=== PATIENT | female | born 1935 | race Hispanic/Latino ===

== ENCOUNTER 2017-07-06 12:14 | Emergency (ER) | payer OTHER, MEDICARE ==
[~2017-07-06 12:14] MED LIST: ACET-2893 PO; ACYC800T PO; ADV250 IH; ALBU2.5V2 IH; ASPI-1181 PO; ATOR20TA65 PO; BIOT25008 PO; CALC-1116 PO; CHOL200012 PO; CYAN250014 PO; DICL2100G TP; EZET10 PO; FISH OIL ORAL PO; FOLI1TAB15 PO; GABA-531 PO; GUAI-1235 PO; IRON18TA PO; LISI10TA7 PO; LISI2.5T2 PO; LORA10TA7 PO; MELA10CA2 PO; MULT1TAB82 PO; NAPR220C16 PO; NAPR250T4 PO; NITR0.4T SL; SIME125C91 PO; SUCR1TAB2 PO; TERB250T51 PO
[2017-07-06 13:31] LABS: BASOPHILS % (AUTO) 0.4 % (0.0-5.0); EOSINOPHILS % (AUTO) 0.6 % (0.0-8.0); HEMATOCRIT 41.5 % (36-48); LYMPHOCYTES % (AUTO) 13.3 % (21.0-51.0); MEAN CORPUSCULAR HEMOGLOBIN 29.4 pg (27.0-33.0); MEAN CORPUSCULAR HGB CONC 33.2 g/dL (32.0-36.0); MEAN CORPUSCULAR VOLUME 88.6 fL (79-99); MONOCYTES % (AUTO) 5.3 % (3.0-13.0); NEUTROPHILS % (AUTO) 80.4 % (40.0-77.0); PLATELET COUNT (AUTO) 412 K/uL (130-400); RED BLOOD CELL COUNT(AUTO) 4.68 MIL/uL (4.00-5.50); RED CELL DISTRIBUTION WIDTH 15.7 % (11.0-15.5); WHITE BLOOD COUNT (AUTO) 13.7 K/uL (4.8-10.8)
[2017-07-06 13:33] LABS: APPEARANCE,URINE Clear (CLEAR); BILIRUBIN,URINE Negative (NEGATIVE); COLOR,URINE Yellow (YELLOW); GLUCOSE, URINE (UA) Negative (NEGATIVE); KETONES,URINE Negative (NEGATIVE); LEUKOCYTE ESTERASE ,URINE Trace (NEGATIVE); NITRATE,URINE Negative (NEGATIVE); OCCULT BLOOD,URINE Trace (NEGATIVE); PROTEIN,URINE Negative (NEGATIVE); UROBILINOGEN,URINE 0.2 mg/dL (0.2-1.0)
[2017-07-06 13:40] LABS: CREATININE 0.8 mg/dL (0.5-1.5); POTASSIUM 3.7 mmol/L (3.5-5.1)
[2017-07-06 13:45] LABS: ALBUMIN 3.4 g/dL (3.5-5.0); BILIRUBIN,TOTAL 0.6 mg/dL (0.2-1.0); TOTAL PROTEIN, SERUM 7.9 g/dL (6.0-8.3)
[2017-07-06 13:46] LABS: BACTERIA,URINE Few /HPF (None Seen); RBC,URINE 0-1 /HPF (0-1); SQUAMOUS EPITHELIAL CELL,UR 0-2 /LPF (0-2); WBC,URINE 0-1 /HPF (0-1)
[2017-07-06] MEDS ORDERED: GLYCERIN ADULT SUPP.RECT RC ONE (13:58)
[2017-07-06 14:11] LABS: CREATINE KINASE MB 1.6 ng/mL (0.5-3.6)
[2017-07-06 14:32] LABS: INR 0.97 (0.85-1.15); PARTIAL THROMBOPLASTIN TIME 29.6 SEC (26.3-35.5); PROTHROMBIN TIME 10.2 SEC (9.6-11.6)
[2017-10-17] MEDS ORDERED: IRON PO (10:56)
[2017-10-17] MEDS ORDERED: GLUC-145 PO (10:59)
[2017-10-17] MEDS ORDERED: GARL1000 PO (10:59)
[2017-10-17] MEDS ORDERED: MAGN250T2 PO (10:59)
[2017-10-17] MEDS ORDERED: TOPI50TA24 PO (10:59)
[2017-10-17] MEDS ORDERED: DIPH25TA51 PO (11:02)
[2017-10-17] MEDS ORDERED: ESCI10TA54 PO (11:02)
[2017-10-17] MEDS ORDERED: PANT40TA25 PO (11:02)
[2017-11-13] MEDS ORDERED: IPRA3AMP4 IH (14:59)
== END 2017-07-06 16:50 | disposition home or self-care (01) ==
LOC: EDH 12:14
DX: K56.41 Fecal impaction (principal); K64.8 Other hemorrhoids; E11.9 Type 2 diabetes mellitus without complications; E78.5 Hyperlipidemia, unspecified; Z88.0 Allergy status to penicillin
CPT/HCPCS: 36415; 71045; 74176; 80053; 81001; 82150; 82270; 82550; 82553; 83690; 85025; 85610; 85730; 93005

== ENCOUNTER → 2017-09-20 | Outpatient (CLI) | payer OTHER, MEDICARE ==
[~2017-09-20] MED LIST changes: +AZIT500T PO; +DIPH25TA51 PO; +ESCI10TA54 PO; +GARL1000 PO; +GLUC-145 PO; +IPRA3AMP24 IH; +IRON PO; +MAGN250T2 PO; +METO25 PO; +PANT40TA25 PO; +PRED20TA3 PO; +TOPI50TA24 PO
== END | disposition home or self-care (01) ==
LOC: SHCH 08:44
PROVIDERS: ATTEND Internal Medicine Cardiovascular Disease
DX: I35.0 Nonrheumatic aortic (valve) stenosis (principal); I10 Essential (primary) hypertension
CPT/HCPCS: 93306

== ENCOUNTER → 2017-09-26 | Outpatient (CLI) | payer OTHER, MEDICARE | END | disposition home or self-care (01) | LOC: SHCH 09:47 | PROVIDERS: ATTEND Internal Medicine Cardiovascular Disease | DX: I65.23 Occlusion and stenosis of bilateral carotid arteries (principal); R09.89 Other specified symptoms and signs involving the circulatory and respiratory systems | CPT/HCPCS: 93880 ==

== ENCOUNTER → 2017-10-17 | Outpatient (CLI) | payer OTHER, MEDICARE ==
[~2017-10-17] VITALS: Ht 152.4 cm; Wt 73.3 kg
[~2017-10-17] MED LIST changes: +SODIUM CHLORIDE 0.9% 500ML 500 ML IV SCH
[2017-10-17 10:03] VITALS: BP 138/73
[2017-10-17 10:04] LABS: BASOPHILS % (AUTO) 0.6 % (0.0-5.0); EOSINOPHILS % (AUTO) 0.6 % (0.0-8.0); HEMATOCRIT 39.9 % (36-48); LYMPHOCYTES % (AUTO) 16.3 % (21.0-51.0); MEAN CORPUSCULAR HEMOGLOBIN 32.2 pg (27.0-33.0); MEAN CORPUSCULAR HGB CONC 34.9 g/dL (32.0-36.0); MEAN CORPUSCULAR VOLUME 92.3 fL (79-99); MONOCYTES % (AUTO) 9.1 % (3.0-13.0); NEUTROPHILS % (AUTO) 73.4 % (40.0-77.0); PLATELET COUNT (AUTO) 284 K/uL (130-400); RED BLOOD CELL COUNT(AUTO) 4.32 MIL/uL (4.00-5.50); RED CELL DISTRIBUTION WIDTH 13.5 % (11.0-15.5); WHITE BLOOD COUNT (AUTO) 8.7 K/uL (4.8-10.8)
[2017-10-17 10:05] LABS: APPEARANCE,URINE Cloudy (CLEAR); BILIRUBIN,URINE Negative (NEGATIVE); COLOR,URINE Yellow (YELLOW); GLUCOSE, URINE (UA) Negative (NEGATIVE); KETONES,URINE Negative (NEGATIVE); LEUKOCYTE ESTERASE ,URINE Negative (NEGATIVE); NITRATE,URINE Negative (NEGATIVE); OCCULT BLOOD,URINE Negative (NEGATIVE); PH,URINE 6.5 (5.0-8.0); PROTEIN,URINE Negative (NEGATIVE); UROBILINOGEN,URINE 0.2 mg/dL (0.2-1.0)
[2017-10-17 10:17] LABS: INR 0.99 (0.85-1.15); PARTIAL THROMBOPLASTIN TIME 29.4 SEC (26.3-35.5); PROTHROMBIN TIME 10.4 SEC (9.6-11.6)
[2017-10-17 10:18] LABS: CREATININE 0.6 mg/dL (0.5-1.5)
[2017-10-17 10:29] LABS: BACTERIA,URINE Rare /HPF (None Seen); RBC,URINE 0-1 /HPF (0-1); SQUAMOUS EPITHELIAL CELL,UR Few /HPF (0-2); WBC,URINE 0-1 /HPF (0-1)
== END | disposition home or self-care (01) ==
LOC: EDSTATUS 09:00 → DAH 10:00
PROVIDERS: ATTEND Internal Medicine Cardiovascular Disease
DX: Z01.818 Encounter for other preprocedural examination (principal); I25.10 Atherosclerotic heart disease of native coronary artery without angina pectoris; R79.1 Abnormal coagulation profile
CPT/HCPCS: 36415; 71045; 80048; 81001; 85025; 85610; 85730; 93005

== ENCOUNTER 2017-11-11 14:00 | Inpatient (IN) | payer OTHER, MEDICARE ==
[~2017-11-11] VITALS: Ht 152.4 cm; Wt 76.0 kg
[~2017-11-11 14:00] MED LIST changes: -ACYC800T PO; -ALBU2.5V2 IH; -ATOR20TA65 PO; -AZIT500T PO; -BIOT25008 PO; -GUAI-1235 PO; -IPRA3AMP24 IH; -IRON18TA PO; -LISI2.5T2 PO; -LORA10TA7 PO; -MELA10CA2 PO; -METO25 PO; -MULT1TAB82 PO; -PRED20TA3 PO; -SIME125C91 PO; -SODIUM CHLORIDE 0.9% 500ML 500 ML IV SCH; -TERB250T51 PO
[2017-11-11 14:46] LABS: BASOPHILS % (AUTO) 1.1 % (0.0-5.0); EOSINOPHILS % (AUTO) 0.6 % (0.0-8.0); HEMATOCRIT 37.9 % (36-48); LYMPHOCYTES % (AUTO) 40.5 % (21.0-51.0); MEAN CORPUSCULAR HEMOGLOBIN 30.7 pg (27.0-33.0); MEAN CORPUSCULAR HGB CONC 34.3 g/dL (32.0-36.0); MEAN CORPUSCULAR VOLUME 89.6 fL (79-99); MONOCYTES % (AUTO) 8.7 % (3.0-13.0); NEUTROPHILS % (AUTO) 49.1 % (40.0-77.0); PLATELET COUNT (AUTO) 293 K/uL (130-400); RED BLOOD CELL COUNT(AUTO) 4.23 MIL/uL (4.00-5.50); RED CELL DISTRIBUTION WIDTH 13.5 % (11.0-15.5); WHITE BLOOD COUNT (AUTO) 7.1 K/uL (4.8-10.8)
[2017-11-11] MEDS ORDERED: IPRATROPIUM/ALBUTEROL SULFATE 3 ML SOLUTION IH ONE ×2 (14:57→16:08)
[2017-11-11 14:59] LABS: CREATININE 0.5 mg/dL (0.5-1.5); POTASSIUM 3.7 mmol/L (3.5-5.1)
[2017-11-11 15:04] LABS: ALBUMIN 3.5 g/dL (3.5-5.0); BILIRUBIN,TOTAL 0.2 mg/dL (0.2-1.0); TOTAL PROTEIN, SERUM 7.8 g/dL (6.0-8.3)
[2017-11-11 15:32] LABS: B-TYPE NATRIURETIC PEPTIDE 39 pg/mL (0-100)
[2017-11-11] MEDS ORDERED: METHYLPREDNISOLONE SOD SUCC 40MG/ML 1ML ONE (16:25)
[2017-11-11 16:27] LABS: APPEARANCE,URINE Clear (CLEAR); BILIRUBIN,URINE Negative (NEGATIVE); COLOR,URINE Yellow (YELLOW); GLUCOSE, URINE (UA) Negative (NEGATIVE); KETONES,URINE Negative (NEGATIVE); LEUKOCYTE ESTERASE ,URINE Moderate (NEGATIVE); NITRATE,URINE Negative (NEGATIVE); OCCULT BLOOD,URINE Large (NEGATIVE); PROTEIN,URINE Negative (NEGATIVE); UROBILINOGEN,URINE 0.2 mg/dL (0.2-1.0)
[2017-11-11 16:52] LABS: BACTERIA,URINE Few /HPF (None Seen); SQUAMOUS EPITHELIAL CELL,UR 0-2 /HPF (0-2)
[2017-11-11] MEDS ORDERED: SODIUM CHLORIDE 0.9% 1000ML 1,000 ML IV ONE (17:23)
[2017-11-11] MEDS ORDERED: IOPAMIDOL-370 75 ML VIAL IV ONE (17:26)
[2017-11-11] MEDS: AZITHROMYCIN 500MG+NS 250ML 250 ML IV SCH (20:45)
[2017-11-11] MEDS ORDERED: AZITHROMYCIN 500MG+NS 250ML 250 ML IV ONE (21:50)
[2017-11-11 22:50] VITALS: BP 156/90
[2017-11-11] MEDS ORDERED: GLUCAGON 1MG KIT 1 MG ML IM PRN (23:15)
[2017-11-11] MEDS ORDERED: DEXTROSE 50%-WATER 50 ML DISP.SYRIN IV PRN (23:15)
[2017-11-11] MEDS ORDERED: HYDRALAZINE HCL 20 MG/ML VIAL IV PRN (23:15)
[2017-11-11] MEDS ORDERED: LORAZEPAM 2 MG/ML 1 ML VIAL IVP PRN (23:15)
[2017-11-11] MEDS ORDERED: ACETAMINOPHEN 325 MG TAB PO PRN (23:15)
[2017-11-11] MEDS ORDERED: ONDANSETRON HCL MDV 20ML 2 MG/ML VIAL IVP PRN (23:15)
[2017-11-11] MEDS ORDERED: ACETAMINOPHEN 325 MG TAB ONE (23:26)
[2017-11-11] MEDS ORDERED: HYDRALAZINE HCL 20 MG/ML VIAL ONE (23:26)
[2017-11-11] MEDS ORDERED: METHYLPREDNISOLONE SOD SUCC 40MG/ML 1ML IVP SCH (23:45)
[2017-11-12] MEDS ORDERED: IPRATROPIUM/ALBUTEROL SULFATE 3 ML SOLUTION IH SCH
[2017-11-12] MEDS ORDERED: FAMOTIDINE/PF 20 MG/2 ML VIAL IV ONE (00:23)
[2017-11-12] MEDS ORDERED: IPRATROPIUM 0.5 MG/2.5 ML INH IH ONE (00:54)
[2017-11-12 03:51] VITALS: BP 144/75
[2017-11-12] MEDS: INSULIN HUMULIN R 100 UNIT/ML 3ML SQ SCH ×4 (05:23→20:40)
[2017-11-12 05:25] LABS: MEAN CORPUSCULAR HEMOGLOBIN 30.8 pg (27.0-33.0); MEAN CORPUSCULAR HGB CONC 34.6 g/dL (32.0-36.0); MEAN CORPUSCULAR VOLUME 89.1 fL (79-99); PLATELET COUNT (AUTO) 308 K/uL (130-400); RED BLOOD CELL COUNT(AUTO) 4.38 MIL/uL (4.00-5.50); RED CELL DISTRIBUTION WIDTH 13.2 % (11.0-15.5); WHITE BLOOD COUNT (AUTO) 5.9 K/uL (4.8-10.8)
[2017-11-12 05:43] LABS: CREATININE 0.6 mg/dL (0.5-1.5); POTASSIUM 3.8 mmol/L (3.5-5.1)
[2017-11-12] MEDS: IPRATROPIUM 0.5 MG/2.5 ML INH IH SCH ×2 (06:30)
[2017-11-12 07:51] VITALS: BP 159/88
[2017-11-12] MEDS ORDERED: CEFTRIAXONE 1GM/D5W 50ML 50 ML IV SCH (09:00)
[2017-11-12] MEDS: FAMOTIDINE 20MG TAB 20 MG TAB PO SCH ×2 (10:18→20:39)
[2017-11-12] MEDS: METOPROLOL TARTRATE 25 MG TAB PO SCH ×2 (10:18→20:39)
[2017-11-12] MEDS: ENOXAPARIN SODIUM 40 MG/0.4 ML SYRINGE SQ SCH (10:19)
[2017-11-12] MEDS: SODIUM CHLORIDE 0.9% 1000ML 1,000 ML IV SCH ×3 (10:20→22:53)
[2017-11-12] MEDS: IPRATROPIUM/ALBUTEROL SULFATE 3 ML SOLUTION IH SCH ×4 (10:46→22:32)
[2017-11-12 11:35] VITALS: BP 167/77
[2017-11-12 16:39] VITALS: BP 155/66
[2017-11-12] MEDS: METHYLPREDNISOLONE SOD SUCC 40MG/ML 1ML IVP SCH ×2 (16:54→22:53)
[2017-11-12 19:25] VITALS: BP 128/59
[2017-11-12] MEDS: AZITHROMYCIN 500MG+NS 250ML 250 ML IV SCH (20:39)
[2017-11-12 23:22] VITALS: BP 148/68
[2017-11-13] MEDS: IPRATROPIUM/ALBUTEROL SULFATE 3 ML SOLUTION IH SCH ×4 (01:51→13:19)
[2017-11-13 03:29] VITALS: BP 144/66
[2017-11-13 04:16] LABS: ABG HCO3 23.9 mmol/L (21.0-28.0); ABG OXYGEN SATURATION 98.2 % (95.0-99.0); ABG PCO2 33 mmHg (32-45)
[2017-11-13 05:37] LABS: HEMATOCRIT 36.3 % (36-48); LYMPHOCYTES % (AUTO) 5.5 % (21.0-51.0); MEAN CORPUSCULAR HEMOGLOBIN 30.3 pg (27.0-33.0); MEAN CORPUSCULAR HGB CONC 33.7 g/dL (32.0-36.0); NEUTROPHILS % (AUTO) 92.5 % (40.0-77.0); PLATELET COUNT (AUTO) 264 K/uL (130-400); RED BLOOD CELL COUNT(AUTO) 4.03 MIL/uL (4.00-5.50); WHITE BLOOD COUNT (AUTO) 5.5 K/uL (4.8-10.8)
[2017-11-13 05:53] LABS: CREATININE 0.7 mg/dL (0.5-1.5); POTASSIUM 3.9 mmol/L (3.5-5.1)
[2017-11-13 07:40] VITALS: BP 142/64
[2017-11-13] MEDS: METHYLPREDNISOLONE SOD SUCC 40MG/ML 1ML IVP SCH ×2 (07:48→15:45)
[2017-11-13] MEDS: INSULIN HUMULIN R 100 UNIT/ML 3ML SQ SCH ×2 (08:07→11:30)
[2017-11-13] MEDS: FAMOTIDINE 20MG TAB 20 MG TAB PO SCH (08:10)
[2017-11-13] MEDS: METOPROLOL TARTRATE 25 MG TAB PO SCH (08:10)
[2017-11-13] MEDS: ENOXAPARIN SODIUM 40 MG/0.4 ML SYRINGE SQ SCH (08:15)
[2017-11-13 11:32] VITALS: BP 151/67
[2017-11-13] MEDS: SODIUM CHLORIDE 0.9% 1000ML 1,000 ML IV SCH (13:17)
[2017-11-13] MEDS ORDERED: PRED20TA3 PO (14:59)
[2017-11-13] MEDS ORDERED: AZIT500T PO (14:59)
[2017-11-13] MEDS ORDERED: IPRA3AMP24 IH (14:59)
[2017-11-13] MEDS ORDERED: METO25 PO (14:59)
== END 2017-11-13 16:40 | disposition home or self-care (01) | DRG 202 ==
LOC: EDH 14:00 → EDHIP 20:29 → 3CH 21:16
PROVIDERS: ADMIT Internal Medicine Nephrology; ATTEND Internal Medicine Nephrology
DX: J45.902 Unspecified asthma with status asthmaticus (principal); E87.1 Hypo-osmolality and hyponatremia; R06.03 Acute respiratory distress; E11.9 Type 2 diabetes mellitus without complications; E66.9 Obesity, unspecified; Z68.32 Body mass index [BMI] 32.0-32.9, adult; E78.5 Hyperlipidemia, unspecified; F10.10 Alcohol abuse, uncomplicated; F32.9 Major depressive disorder, single episode, unspecified; I10 Essential (primary) hypertension; Z83.3 Family history of diabetes mellitus; Z87.891 Personal history of nicotine dependence; Z88.1 Allergy status to other antibiotic agents; Z88.8 Allergy status to other drugs, medicaments and biological substances; Z88.0 Allergy status to penicillin; Z28.21 Immunization not carried out because of patient refusal
CPT/HCPCS: 36415; 36600; 71045; 71275; 80048; 80053; 81001; 82803; 82948; 83880; 84484; 85025; 85027; 85378; 87633; 93005; 94640; 94664; 94760; 99291; J0360; J0456; J0696; J1650; J1815; J2920; J3490; J7030; Q9967

== ENCOUNTER 2018-02-23 16:13 | Inpatient (IN) | payer OTHER, MEDICARE ==
[~2018-02-23] VITALS: Ht 154.9 cm; Wt 68.7 kg
[~2018-02-23 16:13] MED LIST changes: +AZIT500T PO; +IPRA3AMP24 IH; +METO25 PO; +PRED20TA3 PO
[2018-02-23 16:41] LABS: BASOPHILS % (AUTO) 1.3 % (0.0-5.0); EOSINOPHILS % (AUTO) 0.3 % (0.0-8.0); HEMATOCRIT 35.6 % (36-48); LYMPHOCYTES % (AUTO) 16.4 % (21.0-51.0); MEAN CORPUSCULAR HEMOGLOBIN 30.3 pg (27.0-33.0); MEAN CORPUSCULAR HGB CONC 33.6 g/dL (32.0-36.0); MONOCYTES % (AUTO) 4.7 % (3.0-13.0); NEUTROPHILS % (AUTO) 77.3 % (40.0-77.0); PLATELET COUNT (AUTO) 332 K/uL (130-400); RED BLOOD CELL COUNT(AUTO) 3.95 MIL/uL (4.00-5.50); RED CELL DISTRIBUTION WIDTH 14.6 % (11.0-15.5); WHITE BLOOD COUNT (AUTO) 11.8 K/uL (4.8-10.8)
[2018-02-23] MEDS ORDERED: ACETAMINOPHEN ELIXIR 650 MG/20.3 ML UDCUP ONE (16:47)
[2018-02-23 16:52] LABS: CREATININE 0.6 mg/dL (0.5-1.5); POTASSIUM 3.9 mmol/L (3.5-5.1)
[2018-02-23] MEDS ORDERED: IPRATROPIUM/ALBUTEROL SULFATE 3 ML SOLUTION IH ONE (16:53)
[2018-02-23 16:57] LABS: ALBUMIN 3.2 g/dL (3.5-5.0); BILIRUBIN,TOTAL 0.1 mg/dL (0.2-1.0); TOTAL PROTEIN, SERUM 7.4 g/dL (6.0-8.3)
[2018-02-23] MEDS ORDERED: LABETALOL HCL 5 MG/ML 20ML VIAL IV ONE (18:36)
[2018-02-23] MEDS ORDERED: SODIUM CHLORIDE 0.9% 1000ML 1,000 ML IV ONE (18:36)
[2018-02-23 19:46] LABS: APPEARANCE,URINE Clear (CLEAR); BILIRUBIN,URINE Negative (NEGATIVE); COLOR,URINE Yellow (YELLOW); GLUCOSE, URINE (UA) Negative (NEGATIVE); KETONES,URINE Negative (NEGATIVE); LEUKOCYTE ESTERASE ,URINE Negative (NEGATIVE); NITRATE,URINE Negative (NEGATIVE); OCCULT BLOOD,URINE Trace (NEGATIVE); PROTEIN,URINE Negative (NEGATIVE); UROBILINOGEN,URINE 0.2 mg/dL (0.2-1.0)
[2018-02-23] MEDS ORDERED: ONDANSETRON HCL 4 MG/2 ML VIAL IV PRN (20:00)
[2018-02-23] MEDS ORDERED: HYDROCODONE/ACETAMINOPHEN 5/325 MG TAB PO PRN ×2 (20:00)
[2018-02-23] MEDS ORDERED: ACETAMINOPHEN 325 MG TAB PO PRN (20:00)
[2018-02-23 20:04] LABS: SQUAMOUS EPITHELIAL CELL,UR 0-2 /HPF (0-2)
[2018-02-23 20:05] LABS: RBC,URINE 0-1 /HPF (0-1); WBC,URINE 0-1 /HPF (0-1)
[2018-02-23 20:06] LABS: BACTERIA,URINE Few /HPF (None Seen); MUCUS,URINE None Seen LPF (None Seen)
[2018-02-23 20:15] LABS: INR 0.93 (0.85-1.15); PARTIAL THROMBOPLASTIN TIME 31.7 SEC (26.3-35.5); PROTHROMBIN TIME 9.8 SEC (9.6-11.6)
[2018-02-23 20:50] VITALS: BP 136/69
[2018-02-23] MEDS ORDERED: METOPROLOL TARTRATE 25 MG TAB PO SCH (21:00)
[2018-02-23] MEDS: METHYLPREDNISOLONE SOD SUCC 125MG/2ML VIAL IV SCH (22:12)
[2018-02-23] MEDS: SODIUM CHLORIDE 0.9% 1000ML 1,000 ML IV SCH (22:12)
[2018-02-23] MEDS: IPRATROPIUM/ALBUTEROL SULFATE 3 ML SOLUTION IH SCH (22:29)
[2018-02-23 23:22] VITALS: BP 158/83
[2018-02-23 23:25] VITALS: BP 151/81
[2018-02-24] VITALS (16 sets, daily range): BP systolic 131–180; BP diastolic 18–96
[2018-02-24] MEDS: IPRATROPIUM/ALBUTEROL SULFATE 3 ML SOLUTION IH SCH ×4 (02:01→13:51)
[2018-02-24 03:46] LABS: BASOPHILS % (AUTO) 0.3 % (0.0-5.0); HEMATOCRIT 37.9 % (36-48); LYMPHOCYTES % (AUTO) 4.4 % (21.0-51.0); MEAN CORPUSCULAR HEMOGLOBIN 29.4 pg (27.0-33.0); MEAN CORPUSCULAR HGB CONC 32.9 g/dL (32.0-36.0); MEAN CORPUSCULAR VOLUME 89.4 fL (79-99); MONOCYTES % (AUTO) 0.5 % (3.0-13.0); NEUTROPHILS % (AUTO) 94.8 % (40.0-77.0); PLATELET COUNT (AUTO) 290 K/uL (130-400); RED BLOOD CELL COUNT(AUTO) 4.24 MIL/uL (4.00-5.50); RED CELL DISTRIBUTION WIDTH 14.4 % (11.0-15.5); WHITE BLOOD COUNT (AUTO) 8.4 K/uL (4.8-10.8)
[2018-02-24 03:54] LABS: CREATININE 0.7 mg/dL (0.5-1.5); POTASSIUM 3.4 mmol/L (3.5-5.1)
[2018-02-24 03:59] LABS: ALBUMIN 3.2 g/dL (3.5-5.0); BILIRUBIN,TOTAL 0.3 mg/dL (0.2-1.0); MAGNESIUM 1.9 mg/dL (1.80-2.40); TOTAL PROTEIN, SERUM 7.6 g/dL (6.0-8.3)
[2018-02-24] MEDS ORDERED: POTASSIUM CHLORIDE 10% ELIXIR 20 MEQ/15 ML UDCUP PO PRN (04:00)
[2018-02-24] MEDS ORDERED: POTASSIUM CHLORIDE 20MEQ/100ML 100 ML IV PRN (04:00)
[2018-02-24] MEDS ORDERED: LIDOCAINE HCL-MPF 1% 2ML VIAL IVP PRN (04:00)
[2018-02-24] MEDS ORDERED: MAGNESIUM 2GM PREMIX 50ML 50 ML IV ONE (04:08)
[2018-02-24] MEDS ORDERED: POTASSIUM CHLORIDE 20 MEQ ERTAB PO ONE (04:08)
[2018-02-24] MEDS: METHYLPREDNISOLONE SOD SUCC 125MG/2ML VIAL IV SCH ×3 (04:12→20:27)
[2018-02-24] MEDS ORDERED: MAGNESIUM 2GM PREMIX 50ML 50 ML IV PRN (04:15)
[2018-02-24 04:45] LABS: CREATINE KINASE, TOTAL 195 U/L (21-232); MYOGLOBIN 37 ng/mL (10-92)
[2018-02-24] MEDS: SODIUM CHLORIDE 0.9% 1000ML 1,000 ML IV SCH ×2 (05:59→08:31)
[2018-02-24] MEDS: PANTOPRAZOLE SODIUM 40 MG TABLET.DR PO SCH (08:08)
[2018-02-24] MEDS: ENOXAPARIN SODIUM 40 MG/0.4 ML SYRINGE SQ SCH (08:10)
[2018-02-24] MEDS ORDERED: LISINOPRIL 20 MG TABLET PO SCH (09:00)
[2018-02-24] MEDS ORDERED: AMLODIPINE BESYLATE 5 MG TAB PO SCH (10:00)
[2018-02-24] MEDS ORDERED: FUROSEMIDE 10 MG/ML 2ML VIAL IV SCH (12:00)
[2018-02-24] MEDS: METOPROLOL TARTRATE 25 MG TAB PO SCH ×2 (12:20→20:27)
[2018-02-24] MEDS ORDERED: GLUCAGON 1MG KIT 1 MG ML IM PRN (18:15)
[2018-02-24] MEDS ORDERED: IPRATROPIUM/ALBUTEROL SULFATE 3 ML SOLUTION IH PRN (18:15)
[2018-02-24] MEDS ORDERED: LEVOFLOXACIN 500 MG/D5W 100 ML 100 ML IV SCH (18:15)
[2018-02-24] MEDS ORDERED: DEXTROSE 50%-WATER 50 ML DISP.SYRIN IV PRN (18:15)
[2018-02-24] MEDS: POTASSIUM CHLORIDE 20 MEQ ERTAB PO PRN (19:06)
[2018-02-24] MEDS: INSULIN HUMULIN R 100 UNIT/ML 3ML SQ SCH (20:28)
[2018-02-24] MEDS ORDERED: HYDR25TA PO (22:33)
[2018-02-24] MEDS ORDERED: LEVO5TAB13 PO (22:33)
[2018-02-24] MEDS ORDERED: SERT25TA5 PO (22:33)
[2018-02-25] VITALS: BP 142/76
[2018-02-25] MEDS: SODIUM CHLORIDE 0.9% 1000ML 1,000 ML IV SCH (01:16)
[2018-02-25 03:58] LABS: BASOPHILS % (AUTO) 0.2 % (0.0-5.0); EOSINOPHILS % (AUTO) 0.1 % (0.0-8.0); LYMPHOCYTES % (AUTO) 8.4 % (21.0-51.0); MEAN CORPUSCULAR HEMOGLOBIN 30.9 pg (27.0-33.0); MEAN CORPUSCULAR HGB CONC 34.5 g/dL (32.0-36.0); MEAN CORPUSCULAR VOLUME 89.5 fL (79-99); MONOCYTES % (AUTO) 2.7 % (3.0-13.0); NEUTROPHILS % (AUTO) 88.6 % (40.0-77.0); PLATELET COUNT (AUTO) 305 K/uL (130-400); RED CELL DISTRIBUTION WIDTH 14.7 % (11.0-15.5); WHITE BLOOD COUNT (AUTO) 7.9 K/uL (4.8-10.8)
[2018-02-25 04:00] VITALS: BP 147/64
[2018-02-25] MEDS: METHYLPREDNISOLONE SOD SUCC 125MG/2ML VIAL IV SCH ×2 (04:02→12:35)
[2018-02-25 04:04] LABS: CREATININE 0.6 mg/dL (0.5-1.5); POTASSIUM 3.6 mmol/L (3.5-5.1)
[2018-02-25] MEDS: POTASSIUM CHLORIDE 20 MEQ ERTAB PO PRN ×2 (04:44→10:08)
[2018-02-25] MEDS: INSULIN HUMULIN R 100 UNIT/ML 3ML SQ SCH ×4 (06:32→21:00)
[2018-02-25] MEDS ORDERED: LABETALOL 20 MG/4 ML DISP.SYRIN IV PRN (08:30)
[2018-02-25] MEDS ORDERED: FUROSEMIDE 20 MG TABLET PO SCH (09:00)
[2018-02-25] MEDS: LEVOCETIRIZINE DIHYDROCHLORIDE 5 MG PO SCH (09:00)
[2018-02-25] MEDS: POTASSIUM CHLORIDE 10 MEQ/TAB.SA PO SCH (10:07)
[2018-02-25] MEDS: ASPIRIN 81 MG EC TAB PO SCH (10:07)
[2018-02-25] MEDS: SERTRALINE HCL 50 MG TABLET PO SCH ×2 (10:07→10:14)
[2018-02-25] MEDS: HYDROCHLOROTHIAZIDE 25 MG TABLET PO SCH (10:08)
[2018-02-25] MEDS: AMLODIPINE BESYLATE 5 MG TAB PO SCH (10:08)
[2018-02-25] MEDS: PANTOPRAZOLE SODIUM 40 MG TABLET.DR PO SCH (10:08)
[2018-02-25] MEDS: ENOXAPARIN SODIUM 40 MG/0.4 ML SYRINGE SQ SCH (10:09)
[2018-02-25 12:11] VITALS: BP 158/63
[2018-02-25] MEDS: SUCRALFATE 1 GM TABLET PO SCH ×2 (12:34→17:22)
[2018-02-25 15:55] VITALS: BP 161/77
[2018-02-25 20:07] VITALS: BP 142/60
[2018-02-25] MEDS ORDERED: SUB TO BREO ELLIPTA 100MCG/25MCG PER P&T IH SCH (21:00)
[2018-02-25] MEDS: BUDESONIDE 0.5 MG/2 ML INH IH SCH (21:22)
[2018-02-25] MEDS: IPRATROPIUM/ALBUTEROL SULFATE 3 ML SOLUTION IH SCH (21:22)
[2018-02-25] MEDS: PREDNISONE 10 MG TABLET PO SCH (22:04)
[2018-02-26] VITALS (12 sets, daily range): BP systolic 118–161; BP diastolic 46–85
[2018-02-26 04:54] LABS: HEMATOCRIT 33.1 % (36-48); MEAN CORPUSCULAR HEMOGLOBIN 29.9 pg (27.0-33.0); MEAN CORPUSCULAR HGB CONC 33.6 g/dL (32.0-36.0); PLATELET COUNT (AUTO) 261 K/uL (130-400); RED BLOOD CELL COUNT(AUTO) 3.72 MIL/uL (4.00-5.50); RED CELL DISTRIBUTION WIDTH 14.1 % (11.0-15.5)
[2018-02-26 05:26] LABS: CREATININE 0.7 mg/dL (0.5-1.5); MAGNESIUM 2.2 mg/dL (1.80-2.40); POTASSIUM 3.4 mmol/L (3.5-5.1); THYROID STIMULATING HORMONE 0.57 uIU/mL (0.36-3.74)
[2018-02-26] MEDS: BUDESONIDE 0.5 MG/2 ML INH IH SCH ×2 (05:58→21:56)
[2018-02-26] MEDS: POTASSIUM CHLORIDE 20 MEQ ERTAB PO PRN ×2 (05:59→10:19)
[2018-02-26] MEDS: IPRATROPIUM/ALBUTEROL SULFATE 3 ML SOLUTION IH SCH ×2 (06:00→14:00)
[2018-02-26] MEDS: SUCRALFATE 1 GM TABLET PO SCH ×3 (06:53→17:00)
[2018-02-26] MEDS: LEVOCETIRIZINE DIHYDROCHLORIDE 5 MG PO SCH (09:00)
[2018-02-26] MEDS: LEVOFLOXACIN 500 MG TABLET PO SCH (10:18)
[2018-02-26] MEDS: PANTOPRAZOLE SODIUM 40 MG TABLET.DR PO SCH (10:18)
[2018-02-26] MEDS: ASPIRIN 81 MG EC TAB PO SCH (10:18)
[2018-02-26] MEDS: AMLODIPINE BESYLATE 5 MG TAB PO SCH (10:18)
[2018-02-26] MEDS: HYDROCHLOROTHIAZIDE 25 MG TABLET PO SCH (10:18)
[2018-02-26] MEDS: SERTRALINE HCL 50 MG TABLET PO SCH (10:19)
[2018-02-26] MEDS: PREDNISONE 10 MG TABLET PO SCH ×2 (10:19→22:18)
[2018-02-26] MEDS: POTASSIUM CHLORIDE 10 MEQ/TAB.SA PO SCH (10:20)
[2018-02-26] MEDS: ENOXAPARIN SODIUM 40 MG/0.4 ML SYRINGE SQ SCH (10:26)
[2018-02-26] MEDS: INSULIN HUMULIN R 100 UNIT/ML 3ML SQ SCH ×4 (11:30→21:00)
[2018-02-26] MEDS: IPRATROPIUM 0.5 MG/2.5 ML INH IH SCH (21:56)
[2018-02-27] VITALS (17 sets, daily range): BP systolic 118–195; BP diastolic 65–87
[2018-02-27 03:55] LABS: HEMATOCRIT 35.9 % (36-48); MEAN CORPUSCULAR HEMOGLOBIN 30.3 pg (27.0-33.0); MEAN CORPUSCULAR HGB CONC 33.9 g/dL (32.0-36.0); MEAN CORPUSCULAR VOLUME 89.2 fL (79-99); PLATELET COUNT (AUTO) 314 K/uL (130-400); RED BLOOD CELL COUNT(AUTO) 4.03 MIL/uL (4.00-5.50); RED CELL DISTRIBUTION WIDTH 14.7 % (11.0-15.5); WHITE BLOOD COUNT (AUTO) 6.1 K/uL (4.8-10.8)
[2018-02-27 04:08] LABS: INR 0.97 (0.85-1.15); PARTIAL THROMBOPLASTIN TIME 29.4 SEC (26.3-35.5); PROTHROMBIN TIME 10.2 SEC (9.6-11.6)
[2018-02-27 04:39] LABS: CREATININE 0.7 mg/dL (0.5-1.5); MAGNESIUM 2.2 mg/dL (1.80-2.40); POTASSIUM 3.8 mmol/L (3.5-5.1)
[2018-02-27 04:46] LABS: TROPONIN I 0.68 ng/mL (0.00-0.06)
[2018-02-27] MEDS: BUDESONIDE 0.5 MG/2 ML INH IH SCH ×2 (05:54→21:27)
[2018-02-27] MEDS: IPRATROPIUM 0.5 MG/2.5 ML INH IH SCH ×3 (05:54→21:11)
[2018-02-27] MEDS: INSULIN HUMULIN R 100 UNIT/ML 3ML SQ SCH ×4 (07:30→21:00)
[2018-02-27] MEDS: SUCRALFATE 1 GM TABLET PO SCH ×3 (07:30→17:52)
[2018-02-27] MEDS: ASPIRIN 81 MG EC TAB PO SCH (08:00)
[2018-02-27] MEDS: PREDNISONE 10 MG TABLET PO SCH (09:00)
[2018-02-27] MEDS: LEVOCETIRIZINE DIHYDROCHLORIDE 5 MG PO SCH (09:00)
[2018-02-27] MEDS: LEVOFLOXACIN 500 MG TABLET PO SCH (09:00)
[2018-02-27] MEDS: HYDROCHLOROTHIAZIDE 25 MG TABLET PO SCH ×2 (09:00→13:58)
[2018-02-27] MEDS: AMLODIPINE BESYLATE 5 MG TAB PO SCH ×2 (09:00→13:59)
[2018-02-27] MEDS: PANTOPRAZOLE SODIUM 40 MG TABLET.DR PO SCH (09:00)
[2018-02-27] MEDS: POTASSIUM CHLORIDE 10 MEQ/TAB.SA PO SCH (09:00)
[2018-02-27] MEDS: SERTRALINE HCL 50 MG TABLET PO SCH (09:00)
[2018-02-27] MEDS ORDERED: LIDOCAINE HCL-MPF 2% 5ML VIAL ONE (11:06)
[2018-02-27] MEDS ORDERED: IOHEXOL 350 MG/ML 100ML INFUS..BTL IV ONE (11:07)
[2018-02-27] MEDS ORDERED: NITROGLYCERIN 5 MG/ML 10 ML VIAL IV ONE (11:07)
[2018-02-27] MEDS ORDERED: IOHEXOL-350 50ML VIAL IV ONE (11:07)
[2018-02-28 03:00] VITALS: BP 133/63
[2018-02-28 05:07] LABS: HEMATOCRIT 40.3 % (36-48); MEAN CORPUSCULAR HEMOGLOBIN 29.9 pg (27.0-33.0); MEAN CORPUSCULAR HGB CONC 33.4 g/dL (32.0-36.0); MEAN CORPUSCULAR VOLUME 89.5 fL (79-99); NUCLEATED RED BLOOD CELLS 0.1 % (0.0-0.19); PLATELET COUNT (AUTO) 321 K/uL (130-400); RED CELL DISTRIBUTION WIDTH 14.5 % (11.0-15.5); WHITE BLOOD COUNT (AUTO) 6.9 K/uL (4.8-10.8)
[2018-02-28 05:30] LABS: CREATININE 0.8 mg/dL (0.5-1.5); MAGNESIUM 2.1 mg/dL (1.80-2.40); POTASSIUM 3.6 mmol/L (3.5-5.1)
[2018-02-28] MEDS: INSULIN HUMULIN R 100 UNIT/ML 3ML SQ SCH ×3 (05:47→16:30)
[2018-02-28] MEDS: BUDESONIDE 0.5 MG/2 ML INH IH SCH ×2 (06:53→18:06)
[2018-02-28] MEDS: IPRATROPIUM 0.5 MG/2.5 ML INH IH SCH ×2 (06:53→13:43)
[2018-02-28 08:12] VITALS: BP 129/67
[2018-02-28] MEDS: ASPIRIN 81 MG EC TAB PO SCH (08:41)
[2018-02-28] MEDS: SUCRALFATE 1 GM TABLET PO SCH ×3 (08:41→16:53)
[2018-02-28] MEDS: PANTOPRAZOLE SODIUM 40 MG TABLET.DR PO SCH (08:42)
[2018-02-28] MEDS: AMLODIPINE BESYLATE 5 MG TAB PO SCH (08:42)
[2018-02-28] MEDS: SERTRALINE HCL 50 MG TABLET PO SCH (08:42)
[2018-02-28] MEDS: HYDROCHLOROTHIAZIDE 25 MG TABLET PO SCH (08:42)
[2018-02-28] MEDS: POTASSIUM CHLORIDE 10 MEQ/TAB.SA PO SCH (08:43)
[2018-02-28] MEDS: LEVOFLOXACIN 500 MG TABLET PO SCH (08:43)
[2018-02-28] MEDS: LEVOCETIRIZINE DIHYDROCHLORIDE 5 MG PO SCH (08:49)
[2018-02-28] MEDS ORDERED: PREDNISONE 10 MG TABLET PO SCH (09:00)
[2018-02-28 11:43] VITALS: BP 116/42
[2018-02-28 11:45] VITALS: BP_SYST 117; BP_SYST 133; BP_DIAS 61; BP_DIAS 66
[2018-02-28 15:51] VITALS: BP 134/60
== END 2018-02-28 20:40 | disposition home or self-care (01) | DRG 280 ==
LOC: EDH 16:13 → EDHIP 19:14 → 3AH 20:36
PROVIDERS: ADMIT Internal Medicine; ATTEND Internal Medicine
PROC: 4A023N8 Measurement of Cardiac Sampling and Pressure, Bilateral, Percutaneous Approach (ICD-10-PCS; principal; 2018-02-27)
PROC: B2111ZZ Fluoroscopy of Multiple Coronary Arteries using Low Osmolar Contrast (ICD-10-PCS; 2018-02-27)
PROC: B2161ZZ Fluoroscopy of Right and Left Heart using Low Osmolar Contrast (ICD-10-PCS; 2018-02-27)
DX: I35.2 Nonrheumatic aortic (valve) stenosis with insufficiency (principal); I21.4 Non-ST elevation (NSTEMI) myocardial infarction; I50.43 Acute on chronic combined systolic (congestive) and diastolic (congestive) heart failure; E87.1 Hypo-osmolality and hyponatremia; J44.1 Chronic obstructive pulmonary disease with (acute) exacerbation; J45.901 Unspecified asthma with (acute) exacerbation; J45.909 Unspecified asthma, uncomplicated; Z68.32 Body mass index [BMI] 32.0-32.9, adult; E66.9 Obesity, unspecified; W19.XXXA Unspecified fall, initial encounter; I25.10 Atherosclerotic heart disease of native coronary artery without angina pectoris; S80.02XA Contusion of left knee, initial encounter; J98.8 Other specified respiratory disorders; E11.51 Type 2 diabetes mellitus with diabetic peripheral angiopathy without gangrene; E78.5 Hyperlipidemia, unspecified; I11.0 Hypertensive heart disease with heart failure; I35.1 Nonrheumatic aortic (valve) insufficiency; I49.3 Ventricular premature depolarization; M47.9 Spondylosis, unspecified; Z79.82 Long term (current) use of aspirin; Z79.899 Other long term (current) drug therapy; Z95.2 Presence of prosthetic heart valve; Z90.710 Acquired absence of both cervix and uterus; Z87.891 Personal history of nicotine dependence; Y92.000 Kitchen of unspecified non-institutional (private) residence as the place of occurrence of the external cause; Y93.89 Activity, other specified; Y99.8 Other external cause status; Z88.0 Allergy status to penicillin; Z88.8 Allergy status to other drugs, medicaments and biological substances; Z83.3 Family history of diabetes mellitus; Z82.5 Family history of asthma and other chronic lower respiratory diseases; Z82.49 Family history of ischemic heart disease and other diseases of the circulatory system; Z82.3 Family history of stroke; Z82.0 Family history of epilepsy and other diseases of the nervous system
CPT/HCPCS: 36415; 70450; 71045; 72125; 73562; 73700; 80048; 80053; 81001; 82550; 82948; 83735; 83874; 83880; 83930; 84443; 84484; 85025; 85027; 85610; 85730; 93005; 93306; 93460; 93880; 94640; 94664; C1760; C1894; G0480; J1644; J1650; J1940; J1956; J2930; J3475; J3490; J7030; J7512; Q9967

== ENCOUNTER 2018-09-08 04:16 | Emergency (ER) | payer OTHER, MEDICARE ==
[~2018-09-08 04:16] MED LIST changes: -ACET-2893 PO; +ATOR20TA65 PO; -AZIT500T PO; +CALC-125 PO; +CHOL100018 PO; -CHOL200012 PO; +CYAN-52 PO; -CYAN250014 PO; -DICL2100G TP; -DIPH25TA51 PO; -ESCI10TA54 PO; -EZET10 PO; -FISH OIL ORAL PO; -FOLI1TAB15 PO; +GABA-529 PO; -GABA-531 PO; -GARL1000 PO; -GLUC-145 PO; +HYDR25TA PO; +IPRA0.2S54 IH; -IPRA3AMP24 IH; -IRON PO; +MAGN250T10 PO; -MAGN250T2 PO; +MELA10CA2 PO; -METO25 PO; -NAPR220C16 PO; -NAPR250T4 PO; -NITR0.4T SL; -PANT40TA25 PO; -PRED20TA3 PO; -TOPI50TA24 PO
[2018-09-27] MEDS ORDERED: TRAM50TA4 PO (23:56)
[2018-09-27] MEDS ORDERED: SUCR1TAB2 PO (23:56)
[2018-09-27] MEDS ORDERED: LEVO5TAB13 PO (23:56)
[2018-09-29] MEDS ORDERED: ADV250 IH (21:19)
[2018-09-29] MEDS ORDERED: CYAN100022 SL (21:19)
== END 2018-09-08 06:34 | disposition home or self-care (01) ==
LOC: EDH 04:16
DX: Z04.3 Encounter for examination and observation following other accident (principal); I10 Essential (primary) hypertension; E11.9 Type 2 diabetes mellitus without complications; E78.5 Hyperlipidemia, unspecified; Z88.0 Allergy status to penicillin; Z88.8 Allergy status to other drugs, medicaments and biological substances; Z88.6 Allergy status to analgesic agent; Z90.710 Acquired absence of both cervix and uterus; Z90.49 Acquired absence of other specified parts of digestive tract; W18.39XA Other fall on same level, initial encounter; Y93.89 Activity, other specified; Y92.098 Other place in other non-institutional residence as the place of occurrence of the external cause; Y99.8 Other external cause status

== ENCOUNTER 2018-09-27 13:14 | Inpatient (IN) | payer OTHER, MEDICARE | END 2018-10-06 16:50 | LOC: EDH 13:14 → EDHIP 17:16 → 3BH 19:00 | DX: A41.9 Sepsis, unspecified organism (principal); N17.0 Acute kidney failure with tubular necrosis; N12 Tubulo-interstitial nephritis, not specified as acute or chronic; E87.2 Acidosis; N30.00 Acute cystitis without hematuria; K42.9 Umbilical hernia without obstruction or gangrene; E11.22 Type 2 diabetes mellitus with diabetic chronic kidney disease; D64.9 Anemia, unspecified; E78.00 Pure hypercholesterolemia, unspecified; E66.9 Obesity, unspecified; I13.10 Hypertensive heart and chronic kidney disease without heart failure, with stage 1 through stage 4 chronic kidney disease, or unspecified chronic kidney disease; J44.9 Chronic obstructive pulmonary disease, unspecified ==

== ENCOUNTER 2018-10-14 18:12 | Inpatient (IN) | payer OTHER, MEDICARE ==
[~2018-10-14] VITALS: Ht 157.5 cm; Wt 69.8 kg
[~2018-10-14 18:12] MED LIST changes: -ATOR20TA65 PO; -CALC-125 PO; -CYAN-52 PO; +CYAN100022 SL; -GABA-529 PO; -HYDR25TA PO; -IPRA0.2S54 IH; +LEVO5TAB13 PO; +TRAM50TA4 PO
[2018-10-14 19:21] LABS: BASOPHILS % (AUTO) 0.7 % (0.0-5.0); EOSINOPHILS % (AUTO) 0.1 % (0.0-8.0); HEMATOCRIT 28.8 % (36-48); LYMPHOCYTES % (AUTO) 2.6 % (21.0-51.0); MEAN CORPUSCULAR HEMOGLOBIN 26.4 pg (27.0-33.0); MEAN CORPUSCULAR HGB CONC 32.5 g/dL (32.0-36.0); MEAN CORPUSCULAR VOLUME 81.2 fL (79-99); MONOCYTES % (AUTO) 2.7 % (3.0-13.0); NEUTROPHILS % (AUTO) 93.9 % (40.0-77.0); PLATELET COUNT (AUTO) 46 K/uL (130-400); RED BLOOD CELL COUNT(AUTO) 3.55 MIL/uL (4.00-5.50); RED CELL DISTRIBUTION WIDTH 16.9 % (11.0-15.5); WHITE BLOOD COUNT (AUTO) 15.3 K/uL (4.8-10.8)
[2018-10-14 19:35] LABS: CREATININE 0.9 mg/dL (0.5-1.5); POTASSIUM 3.8 mmol/L (3.5-5.1)
[2018-10-14 19:40] LABS: ALBUMIN 2.5 g/dL (3.5-5.0); BILIRUBIN,TOTAL 0.8 mg/dL (0.2-1.0); INR 1.1 (0.85-1.15); PARTIAL THROMBOPLASTIN TIME 25.2 SEC (26.3-35.5); PROTHROMBIN TIME 11.5 SEC (9.6-11.6); TOTAL PROTEIN, SERUM 5.8 g/dL (6.0-8.3)
[2018-10-14 20:08] LABS: PLATELET MORPHOLOGY COMMENT MARKED DECREASE
[2018-10-14 20:19] LABS: APPEARANCE,URINE Clear (CLEAR); BILIRUBIN,URINE Negative (NEGATIVE); COLOR,URINE Yellow (YELLOW); GLUCOSE, URINE (UA) Negative (NEGATIVE); KETONES,URINE Negative (NEGATIVE); LEUKOCYTE ESTERASE ,URINE Small (NEGATIVE); NITRATE,URINE Negative (NEGATIVE); OCCULT BLOOD,URINE Small (NEGATIVE); PH,URINE 5.5 (5.0-8.0); PROTEIN,URINE Negative (NEGATIVE); UROBILINOGEN,URINE 0.2 mg/dL (0.2-1.0)
[2018-10-14 20:47] LABS: BACTERIA,URINE Rare /HPF (None Seen); RBC,URINE 0-1 /HPF (0-1); YEAST,URINE BUDDING Few /HPF (None Seen)
[2018-10-14 22:40] VITALS: BP 154/50
--- NOTE | 2018-10-14 22:45 | NUR ---
ADMIT PT ADMITTED TO ROOM 318,AAOX3. NO DISTRESS NOTED. ADMISSION CARE DONE. ADMISSION DATA BASE COMPLETED. TELE MONITOR CONNECTED. STARTED ON IV ANTIBIOTICS. SCD'S APPLIED TO BLE. ORIENTED TO ROOM AND UNIT. IN FOR MORE CARE AND MANAGEMENT. Addendum: 10/15/18 at 0021 by SARANYA MORALES RN RN Amended: Links added.
[2018-10-14] MEDS: LEVOFLOXACIN 500 MG/D5W 100 ML 100 ML IV SCH (22:59)
[2018-10-14] MEDS ORDERED: PANT40TA25 PO (23:40)
[2018-10-14] MEDS ORDERED: PRED10TA3 PO (23:40)
[2018-10-14] MEDS ORDERED: METO25TA6 PO (23:40)
[2018-10-14] MEDS ORDERED: ACET-2900 PO (23:40)
[2018-10-14] MEDS ORDERED: GLUC1KIT IJ (23:40)
[2018-10-14] MEDS ORDERED: DEXT38GE12 PO (23:40)
[2018-10-14] MEDS ORDERED: SODI650T PO (23:40)
[2018-10-14] MEDS ORDERED: INSU100V3 IJ (23:40)
[2018-10-14] MEDS ORDERED: BUDE0.5A3 IH (23:40)
[2018-10-14] MEDS ORDERED: SUCR1TAB2 PO (23:40)
[2018-10-14] MEDS ORDERED: IPRA3AMP24 IH (23:40)
[2018-10-14] MEDS ORDERED: CETI5TAB12 PO (23:40)
[2018-10-14] MEDS ORDERED: DILT120C89 PO (23:40)
--- NOTE | 2018-10-15 00:40 | NUR ---
RT RT INITIATED IS AT THIS TIME AND PT WAS ABLE TO DO 750 VOLUME. WILL NEED TO RE-INSTRUCT PT IN AM.
[2018-10-15] MEDS: AZITHROMYCIN 500MG+NS 250ML 250 ML IV SCH ×2 (01:12→21:59)
[2018-10-15 01:48] LABS: TROPONIN I 3.83 ng/mL (0.00-0.06)
[2018-10-15] MEDS: IPRATROPIUM/ALBUTEROL SULFATE 3 ML SOLUTION IH SCH ×5 (01:53→23:12)
--- NOTE | 2018-10-15 04:55 | NUR ---
SL PT RESTING WELL. SLEPT AT INTERVALS. NO DISTRESS NOTED. SALINE LOCKED PIV. KEPT COMFORTABLE IN BED. CALL LIGHT WITHIN REACH. FOR MORE CARE.
[2018-10-15 05:00] VITALS: BP 144/57
[2018-10-15] MEDS: INSULIN HUMULIN R 100 UNIT/ML 3ML SQ SCH ×4 (06:00→20:26)
[2018-10-15] MEDS: SUCRALFATE 1 GM TABLET PO SCH ×3 (06:32→17:12)
[2018-10-15 07:00] LABS: BASOPHILS % (AUTO) 0.5 % (0.0-5.0); HEMATOCRIT 26.3 % (36-48); LYMPHOCYTES % (AUTO) 3.7 % (21.0-51.0); MEAN CORPUSCULAR HEMOGLOBIN 26.7 pg (27.0-33.0); MEAN CORPUSCULAR HGB CONC 32.7 g/dL (32.0-36.0); MEAN CORPUSCULAR VOLUME 81.5 fL (79-99); MONOCYTES % (AUTO) 2.3 % (3.0-13.0); NEUTROPHILS % (AUTO) 93.5 % (40.0-77.0); PLATELET COUNT (AUTO) 26 K/uL (130-400); RED BLOOD CELL COUNT(AUTO) 3.23 MIL/uL (4.00-5.50); RED CELL DISTRIBUTION WIDTH 16.8 % (11.0-15.5)
[2018-10-15 07:31] LABS: CREATININE 0.9 mg/dL (0.5-1.5); POTASSIUM 3.7 mmol/L (3.5-5.1)
[2018-10-15 07:35] LABS: TROPONIN I 3.95 ng/mL (0.00-0.06)
[2018-10-15 08:00] VITALS: BP 155/58
[2018-10-15] MEDS ORDERED: PREDNISONE 10 MG TABLET PO SCH (09:00)
[2018-10-15] MEDS: ENOXAPARIN SODIUM 30 MG/0.3 ML SQ SCH (09:00)
[2018-10-15] MEDS ORDERED: **HM** MELATONIN 10MG PO PRN (09:00)
[2018-10-15] MEDS ORDERED: CETIRIZINE HCL 5 MG TABLET PO SCH (09:00)
[2018-10-15] MEDS: CYANOCOBALAMIN (VITAMIN B-12) 1,000 MCG TABLET PO SCH (09:39)
[2018-10-15] MEDS: FAMOTIDINE 20MG TAB 20 MG TAB PO SCH ×2 (09:39→20:26)
[2018-10-15] MEDS: ASPIRIN 81 MG EC TAB PO SCH (09:39)
[2018-10-15] MEDS: SODIUM BICARBONATE 650 MG TAB PO SCH ×2 (09:39→20:26)
[2018-10-15] MEDS: CALCIUM 600 + VITAMIN D 400 TABLET PO SCH (09:41)
[2018-10-15] MEDS: METOPROLOL TARTRATE 25 MG TAB PO SCH ×2 (09:41→20:26)
[2018-10-15] MEDS: MAGNESIUM OXIDE 400 MG TABLET PO SCH (09:41)
[2018-10-15] MEDS: DILTIAZEM HCL 120 MG CAP.SR.24H PO SCH (09:52)
[2018-10-15 12:02] VITALS: BP 157/67
[2018-10-15 13:44] LABS: TROPONIN I 2.76 ng/mL (0.00-0.06)
[2018-10-15 16:00] VITALS: BP 147/56
--- NOTE | 2018-10-15 17:13 | NUR ---
INITIAL: Spoke w pt's dtr Selena regarding dcp. Per Selena pt was @ [facility] prior to admission for Rehab and IV ABX. Prior to last hospitalization, pt lived alone and used a rollator for ambulation. Per Selena pt will need to go to a SNF @ [place] to continue rehabilitation. Saleem Walters her brother is RENZO and will be signing consents for any referrals. She mentions that they are not sure if pt will go back to [facility], discussed other in network options avail such at [facility] or [facility]. She mentions that they will review options and inform CM. CM to continue to follow and wait for Md recommendations. Addendum: 10/15/18 at 1716 by MAGGIE BOLANOS Amended: Links added.
[2018-10-15 20:29] VITALS: BP 142/55
--- NOTE | 2018-10-15 21:46 | NUR ---
PAGED RESOURCE ENGINEER/MD Pt c/o pain to her left side of chest,Vs taken bp 158/60,heart rate 70-sinus rhythm with pac's.02 sat 97on room air.Placed on at 2 lpm via Nc.Aj called back,see new order.
[2018-10-15] MEDS ORDERED: NITROGLYCERIN 0.4 MG SL TAB SL ONE (21:58)
[2018-10-15] MEDS ORDERED: NITROGLYCERIN 0.4 MG SL TAB SL PRN (22:00)
--- NOTE | 2018-10-15 22:00 | NUR ---
NTG Nitro sublingual given.Ekg done.
--- NOTE | 2018-10-15 22:05 | NUR ---
MED EFFECT Pt resting quietly in bed,eyes closed.Resp even and unlabored.No c/o of chest pain.
[2018-10-16] VITALS (20 sets, daily range): BP systolic 134–182; BP diastolic 42–83
[2018-10-16] MEDS: LEVOFLOXACIN 500 MG/D5W 100 ML 100 ML IV SCH (00:29)
--- NOTE | 2018-10-16 00:34 | NUR ---
A FLUTTER Pt having episode of a fib/flutter 120's as per Karin senior electronics technician.Pt quietly resting in bed.Vs taken per staff.Paged Analytics Analyst glass scullion.In and out of a flutter to sinus rhythm with pac's as per telemetry.
--- NOTE | 2018-10-16 00:38 | NUR ---
NOTEREADER Aj NOTEREADER called back and notified of a flutter episode.No new order,will continue to monitor for now.
--- NOTE | 2018-10-16 03:44 | NUR ---
SCRIPT MANAGER Pt has not voided all night,abdomen large,appears distended.Abdominal breathing noted.Bladder scanned showed 544 ml.Gonzalo Norman Potato Chip Sacking Machine Operator.
--- NOTE | 2018-10-16 04:21 | NUR ---
AGUIRRE CATH Explained procedure to pt,aguirre cath inserted observing sterile technique,drained 2500 ml dark jerry colored urine,aguirre cath clamped after each 600 ml drained.Pt tolerated procedure well.Aguirre cath secured with a statlock.Notified Gagan Norman Np. Addendum: 10/16/18 at 0424 by SHELLEY RAI RN RN Amended: Links added.
--- NOTE | 2018-10-16 04:51 | NUR ---
REST Pt appears more comfortable now,turned on her side.Respirations even and unlabored.Ledbetter cath.patent draining jerry colored urine.
[2018-10-16] MEDS: IPRATROPIUM/ALBUTEROL SULFATE 3 ML SOLUTION IH SCH ×2 (06:00→12:24)
[2018-10-16] MEDS: INSULIN HUMULIN R 100 UNIT/ML 3ML SQ SCH ×2 (06:07→11:30)
[2018-10-16] MEDS: SUCRALFATE 1 GM TABLET PO SCH ×3 (06:08→11:30)
[2018-10-16 06:12] LABS: BASOPHILS % (AUTO) 0.2 % (0.0-5.0); HEMATOCRIT 28.3 % (36-48); LYMPHOCYTES % (AUTO) 2.6 % (21.0-51.0); MEAN CORPUSCULAR HEMOGLOBIN 26.2 pg (27.0-33.0); MEAN CORPUSCULAR HGB CONC 32.1 g/dL (32.0-36.0); MEAN CORPUSCULAR VOLUME 81.4 fL (79-99); MONOCYTES % (AUTO) 2.7 % (3.0-13.0); NEUTROPHILS % (AUTO) 94.5 % (40.0-77.0); NUCLEATED RED BLOOD CELLS 0.1 % (0.0-0.19); PLATELET COUNT (AUTO) 45 K/uL (130-400); RED BLOOD CELL COUNT(AUTO) 3.48 MIL/uL (4.00-5.50); RED CELL DISTRIBUTION WIDTH 17.5 % (11.0-15.5)
--- NOTE | 2018-10-16 06:18 | NUR ---
STROKE CODE Went in to give am meds,pt appears lethargic,barely opens eye to verbal stimuli.Pt unable to move left side,arm and leg,left facial droop.Pupils unequal,left 3 mm,rt 2 mm,sluggish.Stroke Code called.Vital signs taken.Paged hospitalists,coat ironer hand.Blood sugar checked 116.LAst known well 420.NIH score 20.Pt taken to Ct scan stat.Labs were drawn.Pt breathing spontaneously,on at lpm via nc.
[2018-10-16 06:24] LABS: CREATININE 0.8 mg/dL (0.5-1.5); POTASSIUM 3.6 mmol/L (3.5-5.1)
--- NOTE | 2018-10-16 06:30 | NUR ---
RANDAL Barnard Appeals Rn called back and updated on pt.s status.Daughter Selena Sal notified per Shiv Alejandro Rn .
--- NOTE | 2018-10-16 07:00 | NUR ---
PATIENT RECEIVED FROM THIRD FLOOR S/P CODE STROKE; CT HEAD DONE; AWAITING RESULTS; PATIENT IS LETHARGIC, STATES NAME, ABLE TO WIGGLE TOES ON RIGHT SIDE AND MOVE RIGHT ARM WITH WEAKNESS; VISIBLE EFFORT TO OPEN EYES BY RAISING EYEBROWS BUT DOES NOT OPEN EYES; PHYSICAL ASSESSMENT COMPLETED AND TO BE CHARTED; DAUGHTER IN LAW AT BEDSIDE; SOC TO BE DONE MICHELLE
--- NOTE | 2018-10-16 07:03 | NUR ---
ICU Pt trasnferred to room 219 via bed,hooked up to heart monitor.Bedside report given to Irene Chauhan Rn.Pt remains lethargic,unable to move left side.
--- NOTE | 2018-10-16 07:11 | NUR ---
DAUGHTER Spoke to Selena Sal daughter,informed of pt.s change in status,transfer to ICu,she states pt is a FULL CODE.
[2018-10-16 07:18] LABS: HEMOGLOBIN A1C 6.4 % (4.0-6.0)
[2018-10-16 07:21] LABS: CHOLESTEROL 183 mg/dL (<200); HDL CHOLESTEROL 47 mg/dL (35-85); LDL DIRECT 110 mg/dL (0-99); TRIGLYCERIDES 122 mg/dL (30-200)
[2018-10-16 07:25] LABS: INR 1.15 (0.85-1.15); PARTIAL THROMBOPLASTIN TIME 27.7 SEC (26.3-35.5)
[2018-10-16] MEDS ORDERED: IOHEXOL-350 75 ML VIAL IV ONE (08:13)
[2018-10-16] MEDS ORDERED: METOPROLOL TARTRATE 1 MG/ML 5ML VIAL IV SCH ×2 (08:15→12:00)
[2018-10-16] MEDS: ASPIRIN 81 MG EC TAB PO SCH (09:00)
[2018-10-16] MEDS: DILTIAZEM HCL 120 MG CAP.SR.24H PO SCH (09:00)
[2018-10-16] MEDS: ENOXAPARIN SODIUM 30 MG/0.3 ML SQ SCH (09:00)
[2018-10-16] MEDS: CALCIUM 600 + VITAMIN D 400 TABLET PO SCH (09:00)
[2018-10-16] MEDS: SODIUM BICARBONATE 650 MG TAB PO SCH (09:00)
[2018-10-16] MEDS: CYANOCOBALAMIN (VITAMIN B-12) 1,000 MCG TABLET PO SCH (09:00)
[2018-10-16] MEDS: MAGNESIUM OXIDE 400 MG TABLET PO SCH (09:00)
[2018-10-16] MEDS: FAMOTIDINE 20MG TAB 20 MG TAB PO SCH (09:00)
--- NOTE | 2018-10-16 09:40 | NUR ---
COGNITIVE/LINGUISTIC EVALUATION COMPLETED. Pt PRESENTS WITH MODERATE-SEVERE COGNITIVE/LINGUISTIC DEFICITS AND MODERATE-SEVERE MOTOR SPEECH DEFICITS. PATIENT INFORMATION: Pt IS AN 83 YEAR OLD FEMALE WHO WAS REFERRED FOR A COGNITIVE LINGUISTIC EVALUATION SECONDARY TO S/P CVA THIS AM. SON AT BEDSIDE AT THE TIME OF THE EVALUATION. PLEASE NOTE THAT BEDSIDE DYSPHAGIA EVALUATION WAS NOT COMPLETED AT THIS TIME SECONDARY TO Pt BEING LETHARGIC AND POOR FOLLOWING COMMAND ABILITIES. Pt CURRENTLY ADMITTED SECONDARY TO LEUKOCYTOSIS AND LEFT PLEURAL EFFUSION. Pt HAS A PAST MEDICAL HISTORY SIGNIFICANT FOR PROCESS PROSTHETIC HEART VALVE, NONRHEUMATIC AORTIC VALVE STENOSIS, DMII, ESSENTIAL HYPERTENSION, CHRONIC OBSTRUCTIVE PULMONARY DISEASE, MUSCLE WASTING AND ATROPHY, DYSPHAGIA, GERD, HISTORY OF ACUTE PYELONEPHRITIS, ACUTE KIDENEY INJURY, HYSTERECTOMY, UMBILICAL HERNIA REPAIR. EVALUATION: Pt FOLLOWED 1-STEP COMMANDS WITH 60% ACCURACY GIVEN MAXIMUM TACTILE CUES. Pt ANSWERED YES/NO QUESTIONS WITH MAX CUES. Pt ORIENTED TO SELF AND ABLE TO IDENTIFY IMMEDIATE FAMILY MEMBER PRESENT IN THE ROOM. Pt WITH POOR VERBAL OUTPUT, VERBALIZING IN SIMPLE ONE WORD UTTERANCES WITH MAX CUES. PT WITH GARBLED AND SLURRED SPEECH AT THIS TIME. Pt DID NOT LABEL OBJECTS ON ANSWER WH QUESTIONS. Pt REQUIRED MAX COAXING TO PARTICIPATE IN EVALUATION. Pt INTELLIGIBLE AT 60% ACCURACY AT WORD LEVEL. Pt PRESENTS WITH MODERATE TO SEVERE COGNITIVE/LINGUISTIC DEFICITS AND MODERATE-SEVERE DYSARTHRIA. RECOMMENDATIONS: 1. SKILLED SPEECH THERAPY IS RECOMMENDED AT THIS TIME 3-5XWK TOLERATED BY Pt. LTG1: Pt WILL INCREASE COGNITIVE/LINGUISTIC ABILITIES TO BE ABLE TO PARTICIPATE IN ADLs TOLERATED. LTG2: Pt WILL INCREASED MOTOR SPEECH ABILITIES TO BE INTELLIGIBLE AT 80% WITH MIN CUES IN ALL ENVIRONMENTS. STG1: Pt WILL FOLLOW SIMPLE 1-2 STEP COMMANDS WITH 80% ACCURACY. STG2: Pt WILL ANSWER YES/NO QUESTIONS WITH 80% ACCURACY. STG3: Pt WILL COMPLETE ORAL MOTOR EXERCISES WITH 80% ACCURACY. STG4: Pt WILL LABEL COMMON OBJECTS WITH 80% ACCURACY. STG5: Pt WILL IDENTIFY COMMON OBJECTS FROM A FIELD ON 2 WITH 80% ACCURACY. STG6: Pt WILL BE AAOX3 INDEPENDENTLY WITH 100% ACCURACY. STG7: Pt WILL COMPLETE SPEECH CLARITY STRATEGIES AT THE WORD LEVEL WITH 70% ACCURACY GIVEN MAX CUES. 2. BEDSIDE SWALLOW EVALUATION TO BE COMPLETED WHEN Pt IS ALERT AND COOPERATIVE. G-CODES SPOKEN LANGUAGE EXPRESSION: [id number] Addendum: 10/16/18 at 1456 by MARCIE PLUMMER, SPT ST Amended: Links added.
--- NOTE | 2018-10-16 10:26 | NUR ---
Per JESÚS GIBBS,to disregard PT order for now.Patient had change in status from RM. 318 to 219.Will wait for new order from MD for Physical Therapy to evaluate and treat. Addendum: 10/16/18 at 1033 by MARY MOREAU, PT PT Amended: Links added.
--- NOTE | 2018-10-16 12:40 | NUR ---
WOUND PICTURES TAKEN AND PLACED IN CHART
--- NOTE | 2018-10-16 12:45 | NUR ---
PATIENT TAKEN BY EMS TO [facility]; SON AT BEDSIDE; REPORT GIVEN TO NURSE, MILO, AT [facility] [phone]; PATIENT WILL BE GOING TO ROOM 1240 AND REMAINS LETHARGIC, ON ROOM AIR, AND SALINE LOCKED.
== END 2018-10-16 12:53 | disposition short-term general hospital (02) | DRG 280 ==
LOC: EDH 18:12 → EDHIP 21:27 → OBSVTOIN 21:27 → 3CH 22:12 → 2CH 10-16 06:59
PROVIDERS: ADMIT Hospitalist; ATTEND Hospitalist
DX: I21.4 Non-ST elevation (NSTEMI) myocardial infarction (principal); I63.9 Cerebral infarction, unspecified; G81.04 Flaccid hemiplegia affecting left nondominant side; J44.0 Chronic obstructive pulmonary disease with (acute) lower respiratory infection; J98.11 Atelectasis; N39.0 Urinary tract infection, site not specified; R47.01 Aphasia; I48.92 Unspecified atrial flutter; D69.6 Thrombocytopenia, unspecified; E11.9 Type 2 diabetes mellitus without complications; E78.5 Hyperlipidemia, unspecified; I11.0 Hypertensive heart disease with heart failure; I50.9 Heart failure, unspecified; I25.10 Atherosclerotic heart disease of native coronary artery without angina pectoris; I44.0 Atrioventricular block, first degree; I48.0 Paroxysmal atrial fibrillation; K21.9 Gastro-esophageal reflux disease without esophagitis; Z80.0 Family history of malignant neoplasm of digestive organs; Z82.0 Family history of epilepsy and other diseases of the nervous system; Z82.3 Family history of stroke; Z82.49 Family history of ischemic heart disease and other diseases of the circulatory system; Z82.5 Family history of asthma and other chronic lower respiratory diseases; Z83.3 Family history of diabetes mellitus; Z90.710 Acquired absence of both cervix and uterus; Z95.2 Presence of prosthetic heart valve
CPT/HCPCS: 36415; 70450; 70496; 70498; 71045; 80048; 80053; 80061; 81001; 82550; 82948; 83036; 83605; 83874; 84484; 85025; 85610; 85730; 87040; 87077; 87088; 87186; 87804; 92522; 93005; 94640; 94664; A4344; G0378; J0456; J1650; J1956; J3490; J7512; Q9967